=== PATIENT | female | born 2005 | race Two or more races ===

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

== ENCOUNTER 2024-04-22 10:02 | Outpatient (CLI) | payer OTHER ==
[~2024-04-22 10:02] MED LIST: FOLIC ACID0.8 M1; PRENA1 TRUE CO1 EACH
== END 2024-04-22 10:03 | disposition home or self-care (01) ==
LOC: PRENATAL 10:02
PROVIDERS: ATTEND Obstetrics & Gynecology Maternal & Fetal Medicine
DX: O44.00 Complete placenta previa NOS or without hemorrhage, unspecified trimester (principal); Z14.8 Genetic carrier of other disease; Z3A.26 26 weeks gestation of pregnancy

== ENCOUNTER → 2024-06-16 08:06 | Outpatient (CLI) | payer OTHER | END | disposition home or self-care (01) | LOC: PRENATAL 08:06 | PROVIDERS: ATTEND Obstetrics & Gynecology Maternal & Fetal Medicine | DX: O26.849 Uterine size-date discrepancy, unspecified trimester (principal); O36.8199 Decreased fetal movements, unspecified trimester, other fetus; Z14.8 Genetic carrier of other disease; Z3A.33 33 weeks gestation of pregnancy ==